=== PATIENT | female | born 1965 | race Caucasian/White ===

== ENCOUNTER 2020-05-09 20:51 | Inpatient (IN) | payer OTHER, SELFPAY ==
--- NOTE | ~2020-05-09 | CT_ITS ---
EXAMINATION: CT brain wo con DATE: 05/12/2020 13:44 INDICATION: Dizziness. COVID-19 positive. TECHNIQUE: Computed tomography (CT) of the head was performed without intravenous contrast. The mA wa s adjusted according to patient size. Iterative reconstruction technique was employed. The dose-lengt h product was 681.00 mGy-cm. COMPARISON: None FINDINGS: There is no intracranial hemorrhage, acute infarction, or abnormal intracranial mass lesion . The ventricles are normal in size. There are likely changes of ocular lens replacement surgeries. T here is mild mucosal thickening in the paranasal sinuses. The mastoid air cells are normal. There is asymmetric atrophy versus surgical change of left parotid gland. IMPRESSION: 1. Normal brain. Reviewed, dictated and finalized at location A. E MAKER IMPRESSION: 1. Normal brain.
--- NOTE | ~2020-05-09 | XR_ITS ---
EXAMINATION: XR chest 1V portable DATE: 05/09/2020 21:24 INDICATION: COVID positive. Shortness of breath. TECHNIQUE: frontal view of the chest was obtained. COMPARISON: Chest radiograph dated 10/29/2018 FINDINGS: New perihilar and bibasilar opacities. Persistent blunting at the left costophrenic angle suggesting small left pleural effusion. No pneumothorax. The cardiomediastinal silhouette is within normal limit s for AP technique. IMPRESSION: 1. Small left pleural effusion. 2. Perihilar and bibasilar opacities which could represent pneumonia, pulmonary edema, atelectasis or some combination thereof. Reviewed, dictated and finalized at location . T CONTROL OPERATOR
[2020-05-09 20:52] VITALS: BP 141/65; PULSE 79; RESP 20; O2SAT 93
--- NOTE | 2020-05-09 21:04 | ECG_ITS ---
Measurements Intervals [place] Rate: 75 P: 25 [place]: 134 QRS: 46 QRSD: 101 T: 16 QT: 393 QTc: 442 Interpretive Statements SINUS RHYTHM LOW QRS VOLTAGE IN PRECORDIAL LEADS BASELINE ARTIFACT- V3 BORDERLINE ECG Electronically Signed On 05-10-2020 7:25:24 AGRICULTURE INSTRUCTOR by Minor Willard D.O.
[2020-05-09 21:12] LABS: Basophils Percent Auto 0.2 % (0.2-1.2); Hematocrit 44.3 % (37.0-47.0); Hemoglobin 15.6 g/dL (12.0-15.0); Immature Granulocyte Absolute 0.02 K/mm3 (0.00-0.031); Immature Granulocyte Percent A 0.3 % (0-0.5); Lymphocytes Absolute Auto 1.31 K/mm3 (0.9-3.2); Lymphocytes Percent Auto 22.5 % (18.3-44.2); Mean Corpuscular HGB Conc 35.2 g/dl (32-36); Mean Corpuscular Hemoglobin 30.1 pg (26-34); Mean Corpuscular Volume 85.5 fl (80-100); Mean Platelet Volume 11.3 fl (7.4-10.4); Monocytes Absolute Auto 0.4 K/mm3 (0.1-0.6); Monocytes Percent Auto 6.7 % (2.6-8.5); Neutrophils Absolute Auto 4.1 K/mm3 (1.3-6.7); Neutrophils Percent Auto 70.3 % (45.5-73.1); Platelet Count Result 152 k/mm3 (150-375); Red Blood Count 5.18 M/mm3 (4.2-5.4); Red Cell Distribution Width 12.6 % (11.5-14.5); White Blood Count 5.8 K/mm3 (4.5-10.0)
--- NOTE | 2020-05-09 21:17 | ED.GENADULT ---
HPI - General Adult General Chief complaint: Shortness of Breath/Dyspnea Stated complaint: SOB, COVID + Time Seen by Provider: 05/09/20 20:57 Source: patient History of Present Illness HPI narrative: Patient is a 54 y/o female complaining of moderate SOB for 1 week. She states that exertion aggravates her SOB. She also has some cough, chest pain, diarrhea and fever. She states that her fever was up to 101.4 yesterday. She test positive for COVID today. Related Data Home Medications Medication Instructions Recorded Confirmed azithromycin 250 mg PO DAILY 05/10/20 05/10/20 venlafaxine 37.5 mg PO DAILY 05/10/20 05/10/20 Allergies Allergy/AdvReac Type Severity Reaction Status Date / Time codeine AdvReac Unknown Nausea Verified 05/10/20 02:01 Review of Systems Constitutional: Constitutional: Denies chills, Reports fever(s), Denies headache(s) and Denies weakness Eyes: Eyes: Denies blurry vision ENT: Denies headache(s) and Denies neck pain Cardiovascular: Cardiovascular: Reports chest pain and Reports dyspnea Respiratory: Respiratory: Reports cough and Reports dyspnea Gastrointestinal: Gastrointestinal: Denies abdominal pain, Reports diarrhea, Denies nausea and Denies vomiting Genitourinary: Genitourinary: Denies hematuria and Denies dysuria Musculoskeletal: Musculoskeletal: Denies back pain and Denies neck pain Neurologic: Denies headache(s) and Reports weakness PMFSH Past Medical History Medical History (Updated 05/10/20 @ 11:55 by Meghann Ahn PA-C) Depression History of MRSA infection Obesity Surgical History Surgical History (Updated 05/10/20 @ 11:53 by Meghann Ahn PA-C) History of cataract surgery Social History Social History (Updated 05/10/20 @ 11:53 by Meghann Ahn PA-C) Social History: Patient does not smoke, does not drink, does not do drugs. She is in between jobs right now. She would like to be a full code and if she is unable to make her decisions for herself she would like her son Alvaro to make these decisions Smoking status: Never smoker Alcohol intake: never Substance use: never Gender identity (if verbalized by the patient): Female Sexual Orientation (if Verbalized by the Patient): Straight or Heterosexual Spiritual care concerns: No Exam Const: General: no acute distress and well developed Orientation/consciousness: oriented to person, oriented to place, oriented to time and patient oriented x3 HENMT: Head: normocephalic Ears: external ears normal General nose exam: Normal external nose present Eyes: General: appearance normal, both eyes and all related structures Conjunctivae: conjunctivae normal Neck: Neck: normal visual inspection and full ROM Chest: Chest palpation & inspection: normal inspection of the chest and no tenderness Resp: Effort & Inspection: normal respiratory effort Auscultation: clear to auscultation bilaterally Cardio: Rate: regular rate Rhythm: regular rhythm GI: GI Palp: No abdominal tenderness and Yes Soft to palpation Skin: General skin exam: normal color and turgor normal Neuro: General: oriented to person, oriented to place, oriented to time and patient oriented x3 Cognition (Neuro): normal cognition Extrem: General: normal to inspection, full ROM and no pedal edema Psych: Appearance: grossly normal Mental Status: mental status grossly normal Affect: normal affect Course Consultations Consultation #1: Discussed with Dr. Ba, who agrees to admit. Date: 05/09/20 Time: 22:33 Vital Signs Vital signs: Vital Signs Pulse Rate 79 05/09/20 20:52 Respiratory Rate 20 05/09/20 20:52 Blood Pressure 141/65 H 05/09/20 20:52 Pulse Oximetry 93 05/09/20 20:52 Temperature 36.7 C 05/10/20 18:36 Pulse Rate 54 L 05/10/20 18:36 Respiratory Rate 20 05/10/20 18:36 Blood Pressure 148/61 H 05/10/20 18:36 Pulse Oximetry 95 05/10/20 18:36 Medical Decision Making Vital Signs Vi
[2020-05-09 21:23] LABS: Alanine Aminotransferase 83 U/L (4-35); Albumin Level 3.9 g/dL (3.5-5.1); Alkaline Phosphatase 79 U/L (38-126); Anion Gap 7 mmol/L (8-16); Aspartate Amino Transferase 74 U/L (14-36); Bilirubin,Total 0.9 mg/dL (0.2-1.3); Blood Urea Nitrogen 9 mg/dL (7-17); Calcium 8.6 mg/dL (8.4-10.2); Carbon Dioxide 25 mmol/L (22-30); Chloride 106 mmol/L (98-107); Estimated CRCL calculation 100 ml/min; Estimated Glomerular Filt Rate > 60; Glucose 113 mg/dL (65-105); Potassium 3.4 mmol/L (3.4-5.0); Sodium 138 mmol/L (137-145)
[2020-05-09 21:39] LABS: Troponin I < 0.012 ng/mL (0.000-0.034)
[2020-05-09 22:05] VITALS: BP 114/65; PULSE 90; RESP 18; O2SAT 93
[2020-05-09 22:14] VITALS: O2SAT 88
[2020-05-10] VITALS (8 sets, daily range): BP systolic 101–153; BP diastolic 61–76; PULSE 52–65; RESP 18–20; TEMP 36.4–36.9; O2SAT 94–98; BMI 58.0
[2020-05-10] MEDS: DEXAMETHASONE SOD PHOS INJ 4 MG/ML VIAL 6 MG IV PUSH ×2 (00:12→14:47)
[2020-05-10 00:20] LABS: Alveolar/Arterial O2 Gradient 43.4 mmHg; Fractional Inspired Oxygen 21 %; HCO3 ABG 20.9 mEq/l (22.0-26.0); Oxygen Content ABG 20.7 %vol (16.0-22.0); Oxygen Saturation ABG 94.7 % (95.0-100.0); Oxyhemoglobin 93.9 % THb (90.0-100.0); PCO2 ABG 31.3 mmHg (35.0-45.0); PO2 ABG 68.9 mmHg (80.0-100.0); PO2 FiO2 Ratio Arterial Blood 3.28 %; Total Hemoglobin 15.7 g/dL (12.0-18.0); pH ABG 7.443 (7.350-7.450)
[2020-05-10 00:21] LABS: Device ROOM AIR; Modified Allen's Test Pass; Site Drawn LEFT RADIAL
[2020-05-10] MEDS: REMDESIVIR 200 MG/NS 250 ML 200 MG/250 ML BAG 250 MG IVPB (00:34)
[2020-05-10 01:17] LABS: Troponin I < 0.012 ng/mL (0.000-0.034)
--- NOTE | 2020-05-10 01:22 | ADMGEN ---
This patient, Loretta Pack, was admitted to [facility] Surg Room 315-01. Patient/family oriented to hospital policies and general routines including ID bracelet, bed and alarms, visiting hours, pain management, procedures, bathroom and other care routines, personal items, smoking policy, room service/diet, and visiting hours. Information on how to activate the Rapid Response Team has been discussed. Patient/Family are encouraged to report perceived risks to care and to ask questions if they do not understand what they are told or what they should do.
[2020-05-10 03:50] LABS: Alanine Aminotransferase 79 U/L (4-35)
[2020-05-10 04:03] LABS: Troponin I < 0.012 ng/mL (0.000-0.034)
--- NOTE | 2020-05-10 08:17 | PM.IMHP ---
H&P: HPI History of Present Illness Date/Time: 05/10/20 08:17 Chief complaint: covid pneumonia, hypoxia Narrative: Loretta Pack is a 54 year old female who was relatively healthy with a past medical history of obesity and depression who presented emergency room after getting a COVID-19 diagnosis with worsening shortness of breath, chest pain, and weakness. Patient was seen today and states she is still feeling bad. She said her symptoms started 1 week ago included a cough and headache. She notes she had a fever a couple days ago up to 101.4. She admits to nausea, vomiting, diarrhea, shortness of breath, dyspnea on exertion walking bathroom, pressure-like chest pain when lying down, and dizziness. She states the dizziness is worse whenever she moves her head and has never been diagnosed with vertigo. She does not have dizziness if she sits still. She has no arm or jaw pain that accompanies the chest pain. She said the pain comes and goes and is not there when she walks to the bathroom. She has no history of heart disease and has not had a stress test. She denies leg swelling. She has no stroke-like symptoms which include weakness, numbness, tingling, problems with gait, or problems with speech. 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 Review of Systems Review of Systems: All systems reviewed & are unremarkable except as noted in HPI and below PMFSH Past Medical History Medical History (Updated 05/10/20 @ 11:55 by Meghann Ahn PA-C) Depression History of MRSA infection Obesity Surgical History Surgical History (Updated 05/10/20 @ 11:53 by Meghann Ahn PA-C) History of cataract surgery Social History Social History (Updated 05/10/20 @ 11:53 by Meghann Ahn PA-C) Social History: Patient does not smoke, does not drink, does not do drugs. She is in between jobs right now. She would like to be a full code and if she is unable to make her decisions for herself she would like her son Alvaro to make these decisions Smoking status: Never smoker Alcohol intake: never Substance use: never Gender identity (if verbalized by the patient): Female Sexual Orientation (if Verbalized by the Patient): Straight or Heterosexual Spiritual care concerns: No Meds Home Medications and Allergies Home Medications Medication Instructions Recorded Confirmed Type azithromycin 250 mg PO DAILY 05/10/20 05/10/20 History venlafaxine 37.5 mg PO DAILY 05/10/20 05/10/20 History Allergies Allergy/AdvReac Type Severity Reaction Status Date / Time codeine AdvReac Unknown Nausea Verified 05/10/20 02:01 Vital Signs Vital Signs - 24 hr 05/09/20 20:52 05/09/20 22:05 05/09/20 22:14 Temperature Pulse Rate 79 90 Respiratory Rate 20 18 Blood Pressure 141/65 H 114/65 Pulse Oximetry 93 93 88 L 05/10/20 00:19 05/10/20 01:10 05/10/20 01:50 Temperature 98.4 F Pulse Rate 64 65 Respiratory Rate 18 20 Blood Pressure 101/63 140/76 Pulse Oximetry 94 98 98 05/10/20 04:00 Temperature 97.6 F Pulse Rate 65 Respiratory Rate 20 Blood Pressure 153/67 H Pulse Oximetry 94 Exam Narrative: Exam Narrative: General: Obese patient resting comfortably in bed in no acute distress HEENT: Normocephalic, atraumatic, PERRL, Sclerae anicteric, oral mucosa moist. Neck: Supple, no meningeal signs. Moving her head did elicit dizziness Resp: CTA Heart: RRR with no murmurs Abd: Soft, nontender. No pain to palpation. Positive bowel sounds Skin: Warm and dry Extremities: No swelling, erythema or pain to palpation Neuro: Alert and Oriented x4 . Strength the upper lower extremities 5/5. Able to do rapid alternating movements and [id number]. CN 2-12 intact. No focal neurological deficits. H&P: Results Labs Labs: Short CBC 05/09/20 Range/Units 21:06 WBC 5.8 (4.5-10.0) K/mm3 Hgb 15.6 H (12.0-15.0) g/dL Hct 44.3 (37.0-47.0) % Plt Count 152
[2020-05-10 09:34] LABS: Estimated CRCL calculation 128 ml/min; Estimated Glomerular Filt Rate > 60
[2020-05-10] MEDS: ONDANSETRON INJ 4 MG/2 ML VIAL IV PUSH (10:21)
[2020-05-10] MEDS: ACETAMINOPHEN 325 MG TABLET 650 MG PO (10:22)
--- NOTE | 2020-05-10 11:43 | ECG_ITS ---
Measurements Intervals [place] Rate: 50 P: 21 [place]: 132 QRS: 58 QRSD: 95 T: 51 QT: 478 QTc: 439 Interpretive Statements SINUS BRADYCARDIA LOW QRS VOLTAGE IN PRECORDIAL LEADS BORDERLINE ECG Electronically Signed On 05-11-2020 8:42:38 LARD MIXER by Minor Willard D.O.
[2020-05-10] MEDS: PANTOPRAZOLE 40 MG TABLET PO (14:27)
[2020-05-10] MEDS: MECLIZINE HCL 25 MG TABLET PO ×2 (14:28→17:40)
[2020-05-10] MEDS: ENOXAPARIN 40 MG/0.4 ML SYRINGE SUB-Q (14:28)
[2020-05-10] MEDS: BENZOCAINE/MENTHOL (*BKC) 18 EA LOZENGE 1 LOZENGE PO ×2 (14:28→17:43)
[2020-05-10] MEDS: REMDESIVIR 100 MG/NS 250 ML 100 MG/250 ML BAG 250 MG IVPB (22:39)
[2020-05-10] MEDS: guaiFENesin 12 HR 600 MG TABCR PO (22:40)
[2020-05-11] VITALS (7 sets, daily range): BP systolic 126–165; BP diastolic 60–91; PULSE 46–62; RESP 18–22; TEMP 36.1–36.9; O2SAT 94–99
[2020-05-11 07:03] LABS: Hematocrit 45.1 % (37.0-47.0); Hemoglobin 15.7 g/dL (12.0-15.0); Mean Corpuscular HGB Conc 34.8 g/dl (32-36); Mean Corpuscular Hemoglobin 29.8 pg (26-34); Mean Corpuscular Volume 85.7 fl (80-100); Mean Platelet Volume 11.8 fl (7.4-10.4); Platelet Count Result 181 k/mm3 (150-375); Red Blood Count 5.26 M/mm3 (4.2-5.4); Red Cell Distribution Width 12.7 % (11.5-14.5); White Blood Count 5.5 K/mm3 (4.5-10.0)
[2020-05-11 07:22] LABS: Alanine Aminotransferase 73 U/L (4-35); Albumin Level 3.8 g/dL (3.5-5.1); Alkaline Phosphatase 68 U/L (38-126); Anion Gap 11 mmol/L (8-16); Aspartate Amino Transferase 59 U/L (14-36); Bilirubin,Total 0.7 mg/dL (0.2-1.3); Blood Urea Nitrogen 15 mg/dL (7-17); CRP 2.4 mg/dL (<1.0); Calcium 8.8 mg/dL (8.4-10.2); Carbon Dioxide 24 mmol/L (22-30); Chloride 106 mmol/L (98-107); Estimated CRCL calculation 128 ml/min; Estimated Glomerular Filt Rate > 60; Glucose 128 mg/dL (65-105); Lactate Dehydrogenase 871 U/L (313-618); Magnesium 2.5 mg/dL (1.6-2.3); Potassium 3.8 mmol/L (3.4-5.0); Sodium 141 mmol/L (137-145)
[2020-05-11] MEDS: DEXAMETHASONE SOD PHOS INJ 4 MG/ML VIAL 6 MG IV PUSH (10:00)
[2020-05-11] MEDS: PANTOPRAZOLE 40 MG TABLET PO (10:00)
[2020-05-11] MEDS: ENOXAPARIN 40 MG/0.4 ML SYRINGE SUB-Q (10:00)
[2020-05-11] MEDS: MECLIZINE HCL 25 MG TABLET PO ×3 (10:00→17:09)
--- NOTE | 2020-05-11 11:54 | PM.IMPN ---
Progress Note: A&P Assessment and Plan (1) Pneumonia due to COVID-19 virus: Code(s): U07.1 - COVID-19; J12.89 - Other viral pneumonia Status: Acute Assessment and Plan: Patient tested positive for COVID-19 05/08/20 and continues to be short of breath -CXR shows perihilar and bibasilar opacities likely from COVID-19 -continue Decadron -currently on 3 L of oxygen satting at 99% -wean oxygen as tolerated and I have asked the nursing staff to do this today again -continue isolation -Remdesivir will be stopped due to bradycardia (2) Acute respiratory failure with hypoxia: Code(s): J96.01 - Acute respiratory failure with hypoxia Status: Acute Assessment and Plan: Secondary to above -continue supplemental oxygen for sats less than 90 (3) Depression: Code(s): F32.9 - Major depressive disorder, single episode, unspecified Status: Acute Assessment and Plan: Chronic and stable - Continue venlafaxine (4) Transaminitis: Code(s): R74.01 - Elevation of levels of liver transaminase levels Status: Acute Assessment and Plan: Likely due to COVID-19 -Mild, suspect these will improve with improvement of the virus (5) Blood pressure elevated without history of HTN: Code(s): R03.0 - Elevated blood-pressure reading, without diagnosis of hypertension Status: Acute Assessment and Plan: Last blood pressure 139/76 -patient on no blood pressure meds at home -monitor trends and start treatment necessary (6) Chest pain: Code(s): R07.9 - Chest pain, unspecified Status: Acute Assessment and Plan: Patient noted chest pressure at rest which has resolved -troponin negative x3 -EKG on admission reviewed, no significant abnormalities -HR sinus anna -no chest pain with exertion on history or currently -likely due to COVID-19, no history of heart disease -doubt ACS, follow-up outpatient (7) Dizziness: Code(s): R42 - Dizziness and giddiness Status: Acute Assessment and Plan: Appears to be vertigo -no meningeal signs -meclizine not helping -Will try valium PRN -No neurological deficits or meningeal signs but will order CT of the brain (8) Sinus bradycardia: Code(s): R00.1 - Bradycardia, unspecified Status: Acute Assessment and Plan: Noted on telemetry -there are some studies showing that Remdesivir can cause bradycardia. Also, there are some studies showing that the efficacy of Remdesivir on COVID-19 virus is not as clear cut as previously studied (WHO). At this time, I am going to stop the Remdesivir and follow her heart rate as the risks seems to be outweighing the benefit at this time. I do not think the bradycardia is causing her dizziness as it appears to be vertigo. Will monitor Time Spent With Patient Time with patient: 25 - 35 minutes Subjective Date/time seen: 05/11/20 11:54 Interval history: Pt is a 54-year-old female here for COVID pneumonia. Patient states she still has persistent dizziness today which is exacerbated any time she moves her head whatsoever. If she stays still, she is not dizzy. She has a very slight headache but other than that no other issues such as numbness, tingling, problems with speech, neck pain, neck stiffness or weakness. She says she continues to cough but the lozenge helps her sore throat. Her chest pain has resolved Review of Systems Review of Systems: All systems reviewed & are unremarkable except as noted in HPI and below Exam Narrative: Exam Narrative: General: Obese patient resting comfortably in bed in no acute distress HEENT: Normocephalic, atraumatic, PERRL, Sclerae anicteric, oral mucosa moist. Neck: Supple, no meningeal signs. Moving her head did elicit dizziness Resp: CTA Heart: RRR with no murmurs. Telemetry shows occasional sinus bradycardia without missed beats Abd: Soft, nontender. No pain t
[2020-05-11] MEDS: guaiFENesin 12 HR 600 MG TABCR PO ×2 (12:59→20:26)
[2020-05-11] MEDS: BENZOCAINE/MENTHOL (*BKC) 18 EA LOZENGE 1 LOZENGE PO (20:26)
[2020-05-11] MEDS: ACETAMINOPHEN 325 MG TABLET 650 MG PO (20:50)
[2020-05-11] MEDS: ONDANSETRON INJ 4 MG/2 ML VIAL IV PUSH (20:51)
[2020-05-11] MEDS: REMDESIVIR 100 MG/NS 250 ML 100 MG/250 ML BAG 250 MG IVPB (23:25)
[2020-05-12] VITALS (7 sets, daily range): BP systolic 132–169; BP diastolic 56–73; PULSE 44–50; RESP 16–20; TEMP 36.5–37.2; O2SAT 96–99
[2020-05-12] MEDS: diazePAM (*CRX) 5 MG TABLET 2.5 MG PO (00:07)
[2020-05-12] MEDS: MECLIZINE HCL 25 MG TABLET PO ×3 (08:30→17:03)
[2020-05-12] MEDS: guaiFENesin 12 HR 600 MG TABCR PO ×2 (08:30→20:25)
[2020-05-12] MEDS: PANTOPRAZOLE 40 MG TABLET PO (08:30)
[2020-05-12] MEDS: ENOXAPARIN 40 MG/0.4 ML SYRINGE SUB-Q (08:31)
[2020-05-12] MEDS: DEXAMETHASONE SOD PHOS INJ 4 MG/ML VIAL 6 MG IV PUSH (08:31)
[2020-05-12 11:12] LABS: Alanine Aminotransferase 54 U/L (4-35); Albumin Level 3.6 g/dL (3.5-5.1); Alkaline Phosphatase 59 U/L (38-126); Anion Gap 7 mmol/L (8-16); Aspartate Amino Transferase 41 U/L (14-36); Bilirubin,Total 0.6 mg/dL (0.2-1.3); Blood Urea Nitrogen 20 mg/dL (7-17); Calcium 8.7 mg/dL (8.4-10.2); Carbon Dioxide 30 mmol/L (22-30); Chloride 105 mmol/L (98-107); Estimated CRCL calculation 111 ml/min; Estimated Glomerular Filt Rate > 60; Glucose 116 mg/dL (65-105); Potassium 3.7 mmol/L (3.4-5.0); Sodium 142 mmol/L (137-145)
--- NOTE | 2020-05-12 14:16 | PM.IMPN ---
Progress Note: A&P Assessment and Plan (1) Pneumonia due to COVID-19 virus: Code(s): U07.1 - COVID-19; J12.89 - Other viral pneumonia Status: Acute Assessment and Plan: Patient tested positive for COVID-19 05/08/20 and continues to be short of breath -continue to wean oxygen, now down to 1 L -CXR shows perihilar and bibasilar opacities likely from COVID-19 -continue Decadron -wean oxygen as tolerated and I have asked the nursing staff to do this today again -continue isolation -Remdesivir will be stopped due to bradycardia, it was not stopped yesterday (2) Acute respiratory failure with hypoxia: Code(s): J96.01 - Acute respiratory failure with hypoxia Status: Acute Assessment and Plan: Secondary to above -continue supplemental oxygen for sats less than 90 (3) Depression: Code(s): F32.9 - Major depressive disorder, single episode, unspecified Status: Acute Assessment and Plan: Chronic and stable - Continue venlafaxine (4) Transaminitis: Code(s): R74.01 - Elevation of levels of liver transaminase levels Status: Acute Assessment and Plan: Likely due to COVID-19 -Mild, suspect these will improve with improvement of the virus (5) Blood pressure elevated without history of HTN: Code(s): R03.0 - Elevated blood-pressure reading, without diagnosis of hypertension Status: Acute Assessment and Plan: Last blood pressure 132/69 -patient on no blood pressure meds at home -monitor trends and start treatment necessary (6) Chest pain: Code(s): R07.9 - Chest pain, unspecified Status: Acute Assessment and Plan: Patient noted chest pressure at rest which has resolved -troponin negative x3 -EKG on admission reviewed, no significant abnormalities -HR sinus anna -no chest pain with exertion on history or currently -likely due to COVID-19, no history of heart disease -doubt ACS, follow-up outpatient (7) Dizziness: Code(s): R42 - Dizziness and giddiness Status: Acute Assessment and Plan: Appears to be vertigo and improved today with Valium -no meningeal signs -meclizine not helping -continue valium PRN -No neurological deficits or meningeal signs but will order CT of the brain. I called CT and should be done today (8) Sinus bradycardia: Code(s): R00.1 - Bradycardia, unspecified Status: Acute Assessment and Plan: Noted on telemetry -there are some studies showing that Remdesivir can cause bradycardia. Also, there is evidence questioning the efficacy of Remdesivir on COVID-19 virus is not as clear cut as previously studied (WHO). At this time, I am going to stop the Remdesivir and follow her heart rate as the risks seems to be outweighing the benefit at this time. I do not think the bradycardia is causing her dizziness as it appears to be vertigo. Will monitor Subjective Date/time seen: 05/12/20 14:16 Interval history: Pt is a 54-year-old female here for COVID pneumonia. Patient was seen today and states her dizziness has improved. She is now able to move her head back and forth without feeling dizzy. She still feels lightheaded and a little fuzzy when she moves her head a lot but overall much better. She thinks the Valium helped with this. Her headache is gone and she denies numbness, tingling, problems with speech, neck pain, neck stiffness or weakness. She was able to walk to the bathroom today and felt a little short of breath and was coughing but better than she thought she would. She has no chest pain. She is able to taste a little more today but still not able to smell. Her appetite has improved Exam Narrative: Exam Narrative: General: Obese patient resting comfortably in bed in no acute distress HEENT: Normocephalic, atraumatic, PERRL, Sclerae anicteric, oral mucosa moist. Neck: Supple, no meningeal signs. Resp: CTA Heart:
[2020-05-12] MEDS: polyethylene glycoL 3350 17 GM POWD.PACK PO (17:03)
[2020-05-12] MEDS: BENZOCAINE/MENTHOL (*BKC) 18 EA LOZENGE 1 LOZENGE PO (20:26)
[2020-05-12] MEDS: ACETAMINOPHEN 325 MG TABLET 650 MG PO (20:29)
[2020-05-13] VITALS: BP 156/78; PULSE 51; RESP 20; TEMP 36.5; O2SAT 97
[2020-05-13 04:00] VITALS: BP 154/84; PULSE 50; RESP 20; TEMP 36.4; O2SAT 95
[2020-05-13 07:13] LABS: Alanine Aminotransferase 53 U/L (4-35); Albumin Level 3.7 g/dL (3.5-5.1); Alkaline Phosphatase 69 U/L (38-126); Anion Gap 4 mmol/L (8-16); Aspartate Amino Transferase 40 U/L (14-36); Bilirubin,Total 0.5 mg/dL (0.2-1.3); Blood Urea Nitrogen 25 mg/dL (7-17); CRP 0.9 mg/dL (<1.0); Carbon Dioxide 33 mmol/L (22-30); Chloride 106 mmol/L (98-107); Estimated CRCL calculation 111 ml/min; Estimated Glomerular Filt Rate > 60; Glucose 92 mg/dL (65-105); Lactate Dehydrogenase 691 U/L (313-618); Potassium 3.8 mmol/L (3.4-5.0); Sodium 143 mmol/L (137-145)
[2020-05-13] MEDS: DEXAMETHASONE SOD PHOS INJ 4 MG/ML VIAL 6 MG IV PUSH (07:43)
[2020-05-13] MEDS: ENOXAPARIN 40 MG/0.4 ML SYRINGE SUB-Q (07:44)
[2020-05-13] MEDS: MECLIZINE HCL 25 MG TABLET PO (07:45)
[2020-05-13] MEDS: guaiFENesin 12 HR 600 MG TABCR PO (07:45)
[2020-05-13] MEDS: PANTOPRAZOLE 40 MG TABLET PO (07:45)
[2020-05-13] MEDS: polyethylene glycoL 3350 17 GM POWD.PACK PO (07:46)
[2020-05-13 08:00] VITALS: BP 120/56; PULSE 50; PULSE 77; RESP 18; RESP 20; TEMP 36.9; O2SAT 90; O2SAT 95
[2020-05-13 12:00] VITALS: BP 162/83; PULSE 63; RESP 18; TEMP 36.4; O2SAT 97
--- NOTE | 2020-05-13 14:06 | PM.DS ---
DS: Admitting Diagnosis Admitting Diagnosis Admitting Diagnosis: covid pneumonia, hypoxia DS: Discharge Diagnosis Discharge Diagnosis (1) Pneumonia due to COVID-19 virus: Code(s): U07.1 - COVID-19; J12.89 - Other viral pneumonia Status: Acute Assessment and Plan: Patient tested positive for COVID-19 05/08/20 -patient's oxygen was weaned down during her hospitalization and she required no oxygen at discharge -I walked her around the room the day of discharge and she continued to be 97% on room air -CXR shows perihilar and bibasilar opacities likely from COVID-19 -follow-up with primary care physician 1-2 weeks (2) Acute respiratory failure with hypoxia: Code(s): J96.01 - Acute respiratory failure with hypoxia Status: Acute Assessment and Plan: Secondary to above -resolved (3) Depression: Code(s): F32.9 - Major depressive disorder, single episode, unspecified Status: Acute Assessment and Plan: Chronic and stable - Continue venlafaxine (4) Transaminitis: Code(s): R74.01 - Elevation of levels of liver transaminase levels Status: Acute Assessment and Plan: Likely due to COVID-19 -Mild, suspect these will improve with improvement of the virus (5) Blood pressure elevated without history of HTN: Code(s): R03.0 - Elevated blood-pressure reading, without diagnosis of hypertension Status: Acute Assessment and Plan: Last blood pressure 162/83 -patient's blood pressure was persistently elevated and she was started on Norvasc. She has follow-up with her primary care physician (6) Chest pain: Code(s): R07.9 - Chest pain, unspecified Status: Acute Assessment and Plan: Patient noted chest pressure at rest which has resolved -troponin negative x3 -EKG on admission reviewed, no significant abnormalities -HR sinus anna -no chest pain with exertion on history or currently -likely due to COVID-19, no history of heart disease -doubt ACS, follow-up outpatient (7) Dizziness: Code(s): R42 - Dizziness and giddiness Status: Acute Assessment and Plan: Appears to be vertigo and improved today with Valium -no meningeal signs -meclizine not helping -continue valium PRN -No neurological deficits or meningeal signs -CT of the brain normal (8) Sinus bradycardia: Code(s): R00.1 - Bradycardia, unspecified Status: Acute Assessment and Plan: Noted on telemetry -there are some studies showing that Remdesivir can cause bradycardia. Also, there is evidence questioning the efficacy of Remdesivir on COVID-19 virus is not as clear cut as previously studied (WHO). At this time, I am going to stop the Remdesivir and follow her heart rate as the risks seems to be outweighing the benefit at this time. I do not think the bradycardia is causing her dizziness as it appears to be vertigo. Bradycardia improved with stopping Remdesivir DS: Summary Hospital Course Reason for hospitalization: COVID-19 Hospital Course: Pt is a 54 y/o female who was diagnosed with COVID who presented to the ED for worsening SOB, cough, CP, diarrhea, and fevers. Pulse 79, RR 20, bp 141/65, pulse ox 93. EKG NSR. CXR shows small pleural effusion and perihilar and bibasilar opacities. Pt was admitted to the hospitalist service and was observed. She had significant vertigo which resolved slowly with meclizine and Valium. CT of the brain was negative and there was no neurological deficits and her vertigo improved by discharge. She was able to be weaned off oxygen and the day of discharge was walking around the room without any hypoxia noted. She did have high blood pressure and Norvasc was started as stated above. Overall, the patient was doing better. She was educated about isolation guidelines and follow-up with her primary care physician. She had some chest pain prior to admission which seems to be
== END 2020-05-13 15:05 | disposition home or self-care (01) | DRG 137 ==
LOC: ANHED 21:16 → ANH3MEDSUR 23:35
PROVIDERS: Physician Assistant; Admitting Provider Family Medicine; Emergency Provider Emergency Medicine; PCP Family Medicine; Visit Provider Internal Medicine
DX: U07.1 COVID-19 (principal); J12.89 Other viral pneumonia; J96.01 Acute respiratory failure with hypoxia; E66.9 Obesity, unspecified; Z68.43 Body mass index [BMI] 50.0-59.9, adult; F32.9 Major depressive disorder, single episode, unspecified; R07.9 Chest pain, unspecified; R00.1 Bradycardia, unspecified; T50.995A Adverse effect of other drugs, medicaments and biological substances, initial encounter
CPT/HCPCS: 36415; 36600; 70450; 71045; 80048; 80053; 80076; 82565; 82728; 82805; 83615; 83735; 84460; 84484; 85025; 85027; 86140; 93005; 96365; 96375; 99285; A9270; G0378; G0379; J1100; J1650; J2405